=== PATIENT | female | born 1960 | race Caucasian/White ===

== ENCOUNTER 2023-10-07 10:06 | Outpatient (AMB) | payer MEDICARE, MEDICAID, SELFPAY ==
--- NOTE | 2023-10-07 10:08 | A.OFFVIS_ITS ---
Intake Vital Signs 3 10/07/23 10:09 Height 5 ft 7 in Weight 197 lb BMI 30.9 BP 136/72 Blood Pressure Location Lt brachial Position Sitting Pulse 100 Pulse Source Pulse Oximeter Pulse Oximetry (%) 97 Oxygen Delivery Method Room Air Intake Visit Reasons: Chronic Cough Professor Of Art Required: No Accompanied by: Self / Same As Patient Allergies No Known Allergies Allergy (Verified 10/07/23 10:15) Medication List - Last Reconciled 10/07/23 by Josefina Victor LPN ascorbate calcium (vitamin C) 500 mg PO DAILY benztropine 0.5 mg PO BID black cohosh 40 mg PO BID cholecalciferol (vitamin D3) 125 mcg PO .monthly cyclobenzaprine 5 mg PO QID PRN divalproex ER 250 mg PO BEDTIME divalproex ER 500 mg PO BEDTIME levothyroxine 75 mcg PO DAILY loperamide (Anti-Diarrheal (loperamide)) 2 mg PO Q4H PRN loratadine (Allergy Relief (loratadine)) 10 mg PO DAILY naproxen 500 mg PO BID PRN paliperidone ER 9 mg PO DAILY quetiapine ER 100 mg PO BEDTIME HPI Chronic Cough 2 HPI0 Details Lexie is a pleasant 63 year old female, former smoker with 40 pack year history, quit 15+ years ago, with underlying mood disorder and hypothyroidism. She was referred by Dr. Rubio, events administrative assistant, for pulmonary evaluation after abnormal PFT. Patient initially was evaluated by events administrative assistant for chronic cough for the last year, prior CXR unremarkable. PFT revealed severe obstruction with decreased DLCO. Recommendations were made for chest CT but patient declined. Patient notes cough occurs with eating, reported dysphagia. Otherwise denies dyspnea, chest tightness or wheezing. Denies any occupational exposures. Denies any prior asthma. Denies any seasonal allergies. Denies any GERD symptoms. Of note, she is scheduled for a right knee procedure on 10/27 with [facility], unsure if it is a total knee replacement. [facility] Social History (Updated 10/07/23 @ 10:19 by Josefina Victor LPN) Patient Tobacco Use Status: Former Tobacco user Tobacco use type: Cigarette Cigarette Packs Per Day: 2 Years Smoked: 20 years Smoked in Last 30 Days: No Review of Systems Const Denies chills, Denies excessive sweating, Denies fever(s), Denies headache(s) and Denies night sweats Eyes Denies dry eyes, Denies irritation and Denies itchy eyes ENT Reports Normal hearing present, Denies headache(s), Denies nasal congestion, Denies nasal discharge, Denies post nasal drip and Denies sore throat Card Denies chest pain, Denies chest pain at rest, Denies chest pain with activity, Denies claudication, Denies leg edema, Denies dyspnea, Denies dyspnea on exertion, Denies orthopnea and Denies paroxysmal nocturnal dyspnea Resp Denies chest congestion, Reports cough, Denies excessive phlegm production, Denies pain on inspiration, Denies pain with cough, Denies dyspnea, Denies dyspnea on exertion, Denies stridor and Denies wheezing Musc Denies myalgias Neuro Reports Normal hearing present and Denies headache(s) Endo Denies excessive sweating Chance/Lymph Denies lymphadenopathy Aller/Immun Denies itchy eyes, Denies seasonal rhinorrhea and Denies wheezing Physical Exam Vital Signs: Last Vital Signs Pulse 100 10/07/23 10:09 BP 136/72 10/07/23 10:09 Pulse Ox 97 10/07/23 10:09 Oxygen Delivery Method Room Air 10/07/23 10:09 BMI result Body Mass Index 30.9 Const General: cooperative, healthy appearing, comfortable, no acute distress, well developed and alert Orientation/consciousness: patient oriented x3 Limitations: no limitations HEENT Head: Yes normal to inspection, Yes normocephalic and Yes atraumatic Ears: hearing grossly normal bilaterally and external ears normal Eyes General: appearance normal, both eyes and all related structures Eyelids: Yes eyelids normal Sclerae: sclerae normal EOM: EOMs intact bilaterally Neck Neck: Yes normal visual inspection and Yes no lymphadenopathy Lymphatic: no lymphadenopathy noted Chest Chest palpation & inspection: normal inspection of the chest Resp Effort & Inspection: normal respiratory effort, able to speak in complete sentences, no audible wheezes, no cough, no stridor, not tachypneic, no tripod positioning and no use of accessory muscles Auscultation: clear to auscultation bilaterally Cardio Jugular venous distension: no JVD Rate: regular rate Rhythm: regular rhythm Skin Other: warm, dry General skin exam: no rashes or lesions noted Neuro General: patient oriented x3 Cranial nerves: Yes Normal hearing present Cognition (Neuro): normal cognition Gait exam (Neuro): Normal gait present Extrem General: Yes normal to inspection, Yes capillary refill normal, Yes no clubbing, cyanosis or edema and Yes no pedal edema Psych Appearance: grossly normal and well kempt Speech and movement: Normal speech and movement present and Clear speech present Affect: normal affect Attitude: cooperative Thought process: Normal thought process present Thought content: Normal thought content present Insight: Good insight present (Psych) Judgement: Good judgement present (Psych) Office Procedures 6 Minute Walk Time:: 10:48 SPO2 % at rest: 96 Pulse at rest: 100 SPO2 % during excercise: 93 Pulse during excercise: 118 SPO2 % after excercise: 94 Pulse after excercise: 110 Distance in yards walked: 750 Yamil Score: 4 Performance Observations:: Patient walked on level ground unassisted at a slow pace. Patient maintained O2 saturation of 93% or greater and pulse rate of 118 or less during the entire 6 minute walk. Patient denies shortness of breath and says she has right knee pain which slows her walking pace. Patient did not require supplemental O2. 09379 - 6 Minute Walk Results Reviewed Results Reviewed: Assessment & Plan Assessment & Plan (1) Chronic cough: Code(s): R05.3 - Chronic cough (2) COPD (chronic obstructive pulmonary disease): Code(s): J44.9 - Chronic obstructive pulmonary disease, unspecified (3) Dysphagia: Code(s): R13.10 - Dysphagia, unspecified Plan Lexie's symptoms are likely multifactorial with pulmonary etiology and possible microaspiration. Will send for chest CT to evaluate for any parenchymal condition contributing to decreased DLCO. She is requesting this be performed at [facility]. Will also send for MBSS for reported dysphagia and cough with eating. 6MWT was performed and patient does not require supplemental oxygen at this time. All questions were answered and patient is in agreement of plan. Will follow up to review results. Orders: Orders 2 FL barium swallow modified Today R05.3 - Chronic cough, R13.10 - Dysphagia, unspecified AMB 6 minute walk Today J44.9 - Chronic obstructive pulmonary disease, unspecified, R05.3 - Chronic cough CT chest wo IV con Today J44.9 - Chronic obstructive pulmonary disease, unspecified Coding Level of Care Code New Pt Level 4 (05121) Diagnoses Chronic cough R05.3 COPD (chronic obstructive pulmonary disease) J44.9 Dysphagia R13.10 CPT Codes Coding ([id number])
[2023-10-07 10:09] VITALS: BP 136/72; PULSE 100; O2SAT 97; BMI 30.9
[2023-10-07 11:03] VITALS: PULSE 100; O2SAT 96
== END 2023-10-07 11:15 | disposition home or self-care (01) ==
PROVIDERS: PCP Allergy & Immunology; Visit Provider Nurse Practitioner Family
DX: R05.3 Chronic cough (principal); J44.9 Chronic obstructive pulmonary disease, unspecified; R13.10 Dysphagia, unspecified
CPT/HCPCS: 94618; 99204

== ENCOUNTER → 2023-10-07 10:06 | Outpatient (BNVA) | payer MEDICARE, MEDICAID, SELFPAY | PROVIDERS: PCP Allergy & Immunology; Visit Provider Nurse Practitioner Family | DX: R05.3 Chronic cough (principal); J44.9 Chronic obstructive pulmonary disease, unspecified; R13.10 Dysphagia, unspecified | CPT/HCPCS: 94618; 99202 ==